=== PATIENT | female | born 1955 | race Caucasian/White ===

== ENCOUNTER 2019-05-02 07:22 | Outpatient (CLI) | payer MEDICARE, OTHER ==
[2019-05-02 07:43] LABS: BASOPHILS % (AUTO) 0.7 %; EOSINOPHILS # (AUTO) 0.1 10^3/uL (0.0-0.7); EOSINOPHILS % (AUTO) 2.2 %; HGB - HEMOGLOBIN 13.6 g/dL (12.0-16.0); LYMPHOCYTES # (AUTO) 1.2 10^3/uL (1.5-3.5); LYMPHOCYTES % (AUTO) 28.8 %; MEAN CORPUSCULAR HEMOGLOBIN 30.9 pg (27.0-31.0); MEAN CORPUSCULAR HGB CONC 32.7 g/dL (32.0-36.0); MEAN CORPUSCULAR VOLUME 94.5 fL (81.0-99.0); MEAN PLATELET VOLUME 9.6 fL (7.9-10.8); MONOCYTES # (AUTO) 0.6 10^3/uL (0.0-1.0); MONOCYTES % (AUTO) 13.9 %; NEUTROPHILS # (AUTO) 2.3 10^3/uL (1.5-6.6); NEUTROPHILS % (AUTO) 54.2 %; PLT - PLATELET COUNT 141 10^3/uL (130-450); RED CELL DISTRIBUTION WIDTH 12.4 % (12.0-15.0); WHITE BLOOD COUNT 4.2 x10^3/uL (4.8-10.8)
[2019-05-02 08:12] LABS: ALBUMIN 4.4 g/dL (3.2-5.5); ALBUMIN/GLOBULIN RATIO 1.8 (1.0-2.2); ALKALINE PHOSPHATASE 58 IU/L (42-121); ALT ALANINE AMINOTRANSFERASE 16 IU/L (10-60); AST ASPARTATE AMINOTRANSFERASE 20 IU/L (10-42); BILIRUBIN,TOTAL 0.6 mg/dL (0.2-1.0); BUN - BLOOD UREA NITROGEN 16 mg/dL (6-20); CALCIUM 9.3 mg/dL (8.5-10.3); CARBON DIOXIDE - CO2 26 mmol/L (21-32); CHLORIDE 105 mmol/L (101-111); CHOL/HDL RATIO 2.7 (<4.4); CHOLESTEROL 223 mg/dL; CREATININE 0.8 mg/dL (0.4-1.0); GFR - MDRD 72 (>89); GLUCOSE 98 mg/dL (70-100); HDL CHOLESTEROL 83 mg/dL; SODIUM 139 mmol/L (135-145); TOTAL PROTEIN 6.9 g/dL (6.7-8.2)
== END 2019-05-02 07:23 | disposition home or self-care (01) ==
LOC: LAB 07:22
PROVIDERS: ATTEND Nurse Practitioner
DX: Z00.00 Encounter for general adult medical examination without abnormal findings (principal); M85.89 Other specified disorders of bone density and structure, multiple sites; Z79.899 Other long term (current) drug therapy
CPT/HCPCS: 36415; 80053; 80061; 82306; 83721; 84443; 85025

== ENCOUNTER 2019-10-01 09:49 | Emergency (ER) | payer MEDICARE, OTHER ==
--- NOTE | 2019-10-01 10:59 | ED Physician Documentation ---
PD HPI LOWER EXT INJURY - Stated complaint Stated Complaint: RT FOOT PX - Chief complaint Chief Complaint: Ext Problem - History obtained from History obtained from: Patient - History of Present Illness PD HPI LOW EXT INJURY LOCATION: Left, Foot Type of injury: Blunt / blow Where injury occurred: Other (Friend's home) Timing - onset: How many days ago (5) Timing - duration: Days (5) Improved by: Rest Worsened by: Other (Ambulating) Associated symptoms: Swelling, Discolored. No: Weakness, Numbness, Tingling Recently seen: Not recently seen - Additional information Additional information: This is a 64-year-old woman who was visiting a friend and came out of her bathroom kicked something and a ceramic object fell off of the ledge and hit her right on the top of her left foot. She is able to walk on it but it increases the pain. It swelled and bruised pretty significantly she is been taking Aleve and Tylenol and then wrap use some Arnica gel on it this morning but with the continued pain she thought she should have it looked at. No numbness or tingling down into her toes and she has no history of fracture in the past. Review of Systems Musculoskeletal: reports: Extremity pain, Extremity swelling, Other Neurologic: denies: Numbness PD PAST MEDICAL HISTORY - Allergies Allergies/Adverse Reactions: Allergies Allergy/AdvReac Type Severity Reaction Status Date / Time No Known Drug Allergies Allergy Verified 10/01/19 09:52 PD ED PE NORMAL - Vitals Vital signs reviewed: Yes - General General: Alert and oriented X 3, No acute distress, Well developed/nourished - Extremities Extremities: Other (The top of the left foot is diffusely edematous and dark bruising. She has tenderness with palpation across the dorsum of the foot but palpation up in the sole of the foot along the metatarsals is completely nontender. She is a palpable dorsalis pedis pulse. She is able to wiggle her toes and sensation is intact light touch.) - Neuro Neuro: No motor deficit, No sensory deficit - Psych Psych: Normal mood, Normal affect Results - Vitals Vitals: Vital Signs - 24 hr 10/01/19 10/01/19 09:52 12:03 Temperature 36.5 C 36.7 C Heart Rate 60 62 Respiratory 14 14 Rate Blood Pressure 141/70 H 143/75 H O2 Saturation 99 99 Oxygen O2 Source Room air - Rads (name of study) L foot Radiology: EMP read contemporaneously (non-displaced fx of L 4th MT), See rad report Departure - Departure Disposition: 01 Home, Self Care Clinical Impression: Fracture of metatarsal bone of left foot Qualifiers: Encounter type: initial encounter Metatarsal bone: fourth Fracture type: closed Fracture alignment: nondisplaced Qualified Code(s): S92.345A - Nondisplaced fracture of fourth metatarsal bone, left foot, initial encounter for closed fr acture Condition: Good Instructions: ED Fx Foot Follow-Up: Arti Calvo ARNP, [facility] [Primary Care Provider] - Comments: Use the postop shoe for comfort. Keep the appointment with your primary care provider next week so that they can reevaluate and decide when to repeat imaging. Continue taking Tylenol or ibuprofen if needed for pain. Ice and elevate.
--- NOTE | 2019-10-01 11:39 | XRAY Report ---
Reason: pain Procedure Date: 10/01/2019 Accession Number: [id number] / [id number] Procedure: XR - Foot 3 View LT CPT Code: Final Report FULL RESULT: EXAM: LEFT FOOT RADIOGRAPHY EXAM DATE: 10/01/2019 11:12 AM. CLINICAL HISTORY: Left foot pain. COMPARISON: None. TECHNIQUE: 3 views. FINDINGS: Bones: There is a minimally displaced fracture of the neck of the 4th metatarsal. There are no other visible fractures. Joints: Normal. No subluxations. Soft Tissues: Moderate soft tissue swelling of the midfoot. IMPRESSION: Minimally displaced fracture of the neck of the 4th metatarsal. RADIA
[2019-10-01 12:04] VITALS: BP 143/75
== END 2019-10-01 13:00 | disposition home or self-care (01) ==
LOC: ED 09:49
DX: S92.345A Nondisplaced fracture of fourth metatarsal bone, left foot, initial encounter for closed fracture (principal); W20.8XXA Other cause of strike by thrown, projected or falling object, initial encounter; Y93.01 Activity, walking, marching and hiking; Y92.002 Bathroom of unspecified non-institutional (private) residence as the place of occurrence of the external cause
CPT/HCPCS: 99283

== ENCOUNTER 2019-10-27 07:32 | Outpatient (CLI) | payer MEDICARE, OTHER ==
--- NOTE | 2019-10-27 15:53 | XRAY Report ---
Reason: NONDISPLACED FRACTURE OF 4TH METATARSAL LT Procedure Date: 10/27/2019 Accession Number: [id number] / [id number] Procedure: XR - Foot 3 View LT CPT Code: Final Report FULL RESULT: EXAM: LEFT FOOT RADIOGRAPHY EXAM DATE: 10/27/2019 07:43 AM. CLINICAL HISTORY: Nondisplaced fracture of 4th metatarsal left. COMPARISON: FOOT 3 VIEW LT 10/01/2019 10:55 AM. TECHNIQUE: 3 views. FINDINGS: Bones: Callus formation associated with the distal fourth metatarsal shaft fracture. Fracture line still visible. Joints: Normal. No subluxations. Soft Tissues: Normal. No soft tissue swelling. IMPRESSION: 1. Callus formation associated with the fourth metatarsal fracture. Fracture line still visible. No significant change in alignment. RADIA
== END 2019-10-27 07:33 | disposition home or self-care (01) ==
LOC: DI 07:32
PROVIDERS: ATTEND Nurse Practitioner
DX: S92.345D Nondisplaced fracture of fourth metatarsal bone, left foot, subsequent encounter for fracture with routine healing (principal)

== ENCOUNTER 2020-03-09 07:44 | Outpatient (CLI) | payer MEDICARE, OTHER ==
--- NOTE | 2020-03-16 12:24 | Mammography Report ---
Reason: ROUTINE MAMMO Procedure Date: 03/09/2020 Accession Number: [id number] / [id number] Procedure: MGS - Screening Mammo Dig Bilat CPT Code: Final Report FULL RESULT: BILATERAL DIGITAL SCREENING MAMMOGRAM WITH EXAGGERATED CC: 03/09/2020 Comparison is made to exam dated: 11/01/2017 mammogram - [facility]. The tissue of both breasts is extremely dense, which lowers the sensitivity of mammography. No significant masses, calcifications, or other findings are seen in either breast. There has been no significant interval change. IMPRESSION: NEGATIVE There is no mammographic evidence of malignancy. A 1 year screening mammogram is recommended. This exam was interpreted at Station ID: [id number]. NOTE: For mammograms, a report in lay terms will be sent to the patient. Approximately 15% of breast malignancies will not be visualized mammographically. In the management of a palpable breast mass, a negative mammogram must not discourage biopsy of a clinically suspicious lesion. Electronically Signed By: Debbie au/nicky:03/16/2020 12:07:30 ACR BI-RADS Category 1: Negative 3341F D -Extremely dense 1 Mammogram [id number] 1 year screening B
== END 2020-03-09 07:45 | disposition home or self-care (01) ==
LOC: DI.S 07:44
PROVIDERS: ATTEND Nurse Practitioner
DX: Z12.31 Encounter for screening mammogram for malignant neoplasm of breast (principal)
CPT/HCPCS: 77067

== ENCOUNTER 2020-05-28 07:15 | Outpatient (CLI) | payer MEDICARE, OTHER ==
[2020-05-28 07:46] LABS: BASOPHILS % (AUTO) 0.5 %; EOSINOPHILS # (AUTO) 0.2 10^3/uL (0.0-0.7); EOSINOPHILS % (AUTO) 5.5 %; HGB - HEMOGLOBIN 13.8 g/dL (12.0-16.0); LYMPHOCYTES # (AUTO) 1.1 10^3/uL (1.5-3.5); MEAN CORPUSCULAR HEMOGLOBIN 32.1 pg (27.0-31.0); MEAN CORPUSCULAR HGB CONC 33.3 g/dL (32.0-36.0); MEAN CORPUSCULAR VOLUME 96.5 fL (81.0-99.0); MEAN PLATELET VOLUME 9.7 fL (7.9-10.8); MONOCYTES # (AUTO) 0.6 10^3/uL (0.0-1.0); MONOCYTES % (AUTO) 13.9 %; NEUTROPHILS # (AUTO) 2.4 10^3/uL (1.5-6.6); NEUTROPHILS % (AUTO) 53.9 %; PLT - PLATELET COUNT 161 10^3/uL (130-450); RED CELL DISTRIBUTION WIDTH 12.2 % (12.0-15.0); WHITE BLOOD COUNT 4.4 x10^3/uL (4.8-10.8)
[2020-05-28 07:58] LABS: ALBUMIN 4.5 g/dL (3.2-5.5); ALBUMIN/GLOBULIN RATIO 1.8 (1.0-2.2); BILIRUBIN,TOTAL 0.8 mg/dL (0.2-1.0); CALCIUM 9.7 mg/dL (8.5-10.3); CREATININE 0.8 mg/dL (0.4-1.0)
--- NOTE | 2020-05-28 09:20 | XRAY Report ---
PROCEDURE: Hip w/Pelvis 2-3V RT INDICATIONS: RIGHT HIP JOINT PAIN TECHNIQUE: AP pelvis with lateral view(s) of the right hip(s). COMPARISON: None. FINDINGS: Bones: No fractures or dislocations. Pelvic ring appears intact. No suspicious bony lesions. Soft tissues: The visualized bowel gas pattern is normal. No suspicious soft tissue calcifications. IMPRESSION: This is a normal study. Reviewed by: Chaparro Suazo MD on 05/28/2020 9:19 AM PDT Approved by: Chaparro Suazo MD on 05/28/2020 9:19 AM PDT Station ID: [id number]
== END 2020-05-28 07:16 | disposition home or self-care (01) ==
LOC: LAB 07:15
PROVIDERS: ATTEND Nurse Practitioner
DX: B00.9 Herpesviral infection, unspecified (principal); Z79.899 Other long term (current) drug therapy; M85.80 Other specified disorders of bone density and structure, unspecified site; M25.551 Pain in right hip
CPT/HCPCS: 36415; 80053; 82306; 85025

== ENCOUNTER 2020-08-16 10:20 | Day surgery (SDC) | payer MEDICARE, OTHER ==
[2020-08-16] MEDS ORDERED: LACTATED RINGERS 1,000 ML IV ONE (10:58)
[2020-08-16] MEDS ORDERED: fentaNYL 250 MCG/5 ML VIAL IVP ONE (12:04)
[2020-08-16] MEDS ORDERED: MIDAZOLAM 2 MG/2 ML VIAL IVP ONE (12:04)
[2020-08-16] MEDS ORDERED: LACTATED RINGERS 200 ML IV ONE (12:42)
[2020-08-16 13:21] VITALS: BP 113/62
== END 2020-08-16 10:21 | disposition home or self-care (01) ==
LOC: SDS 10:20
PROVIDERS: ATTEND Internal Medicine Gastroenterology
DX: Z12.11 Encounter for screening for malignant neoplasm of colon (principal); Z86.010 Personal history of colon polyps
CPT/HCPCS: G0105; J3010; J7120

== ENCOUNTER 2021-05-01 13:24 | Outpatient (CLI) | payer MEDICARE, OTHER ==
--- NOTE | 2021-05-03 16:09 | Mammography Report ---
BILATERAL DIGITAL SCREENING MAMMOGRAM 3D/2D WITH EXAGGERATED CC: 05/01/2021 CLINICAL: Family history of breast cancer. Comparison is made to exams dated: 03/09/2020 mammogram and 11/01/2017 mammogram - [facility]. The tissue of both breasts is extremely dense, which lowers the sensitivity of mammograph y. No significant masses, calcifications, or other findings are seen in either breast. There has been no significant interval change. IMPRESSION: NEGATIVE There is no mammographic evidence of malignancy. A 1 year screening mammogram is recommended. This exam was interpreted at Station ID: [id number]. NOTE: For mammograms, a report in lay terms will be sent to the patient. Approximately 15% of breast malignancies will not be visualized mammographically. In the management of a palpable breast mass, a negative mammogram must not discourage biopsy of a clinically suspicious lesion. Electronically Signed By: Ling angelo/penrad:05/02/2021 08:40:58 ACR BI-RADS Category 1: Negative 3341F PARENCHYMAL PATTERN: (VD) - The breast(s) demonstrate(s) extremely dense parenchyma, limiting the sen sitivity of mammography. BI-RADS CATEGORY: (1) - 1 RECOMMENDATION: (ANNUAL) - Recommend routine annual screening mammography. [id number] 1 year screening LATERALITY: (B)
== END 2021-05-01 13:25 | disposition home or self-care (01) ==
LOC: DI.S 13:24
DX: Z12.31 Encounter for screening mammogram for malignant neoplasm of breast (principal)

== ENCOUNTER 2022-04-05 12:54 | Outpatient (CLI) | payer MEDICARE ==
--- NOTE | 2022-04-05 16:31 | DEXA Report ---
PROCEDURE: Dexa Spine and/or Hip INDICATIONS: OSTEOPENIA TECHNIQUE: Dual energy x-ray absorptiometry (DXA) was performed on a [employer] System. Regions measur ed are the AP Spine, femoral neck, and if needed forearm. COMPARISON: 02/23/2020 FINDINGS: Lumbar Spine: Bone Mineral Density 0.853 g/cm/cm,T score -2.7, osteoporosis Left Hip: Bone Mineral Density 0.748 g/cm/cm,T score -2.1, osteopenia Left Femoral Neck: Bone Mineral Density 0.713 g/cm/cm, T score -2.3, osteopenia (T score greater or equal to -1.0: NORMAL) (T score from -1.1 to -2.4: OSTEOPENIA) (T score less than or equal to -2.5 to: OSTEOPOROSIS) Impression: Moderate osteopenia. Patient is at increased risk for fracture. Of note, patient's bone mineral densi ty of the lumbar spine has decreased approximately 7.9% since the prior study. Patients with diagnosis of osteoporosis or osteopenia should have regular bone mineral density assess ment. For those eligible for Medicare, routine testing is allowed once every 2 years. Testing frequ ency can be increased for patients who have rapidly progressing disease or for those who are receivin g medical therapy to restore bone mass. Reviewed by: Landon Bradford MD on 04/05/2022 4:30 PM PDT Approved by: Landon Bradford MD on 04/05/2022 4:30 PM PDT Station ID: [id number]
== END 2022-04-05 12:55 | disposition home or self-care (01) ==
LOC: DI 12:54
PROVIDERS: ATTEND Nurse Practitioner Family
DX: M81.0 Age-related osteoporosis without current pathological fracture (principal)

== ENCOUNTER 2022-05-22 14:49 | Outpatient (CLI) | payer MEDICARE ==
--- NOTE | 2022-05-24 12:51 | Mammography Report ---
BILATERAL DIGITAL SCREENING MAMMOGRAM 3D/2D WITH EXAGGERATED CC: 05/22/2022 CLINICAL: Routine screening. Family history of breast cancer. Comparison is made to exams dated: 05/01/2021 mammogram, 03/09/2020 mammogram, and 11/01/2017 mammogram - [facility]. Both breasts are extremely dense, which lowers the sensitivity of mammography (category d />75% glan dular tissue). No significant masses, calcifications, or other findings are seen in either breast. There has been no significant interval change. IMPRESSION: NEGATIVE There is no mammographic evidence of malignancy. A 1 year screening mammogram is recommended. Based on Tyrer-Cuzick model (a risk assessment model), the patient's lifetime risk is 25.1% and her 1 0 year risk is 14.6%. If a patient has an elevated risk, a more comprehensive evaluation should be co nsidered and/or a referral to a genetic counselor. The [place] [employer], [place] [employer], and NCCN Guidelines advise the consideration of Breast MRI as an adjunct to screening mammo graphy in patients whose "Lifetime risk to develop breast cancer" is 20% or higher. This exam was interpreted at Station ID: [id number]. NOTE: For mammograms, a report in lay terms will be sent to the patient. Approximately 15% of breast malignancies will not be visualized mammographically. In the management of a palpable breast mass, a negative mammogram must not discourage biopsy of a clinically suspicious lesion. Electronically Signed By: Landon reyes/nicky:05/24/2022 09:07:07 ACR BI-RADS Category 1: Negative 3341F PARENCHYMAL PATTERN: (VD) - The breast(s) demonstrate(s) extremely dense parenchyma, limiting the sen sitivity of mammography. BI-RADS CATEGORY: (1) - 1 RECOMMENDATION: (ANNUAL) - Recommend routine annual screening mammography. [id number] 1 year screening LATERALITY: (B)
== END 2022-05-22 14:50 | disposition home or self-care (01) ==
LOC: DI.S 14:49
PROVIDERS: ATTEND Nurse Practitioner Family
DX: Z12.31 Encounter for screening mammogram for malignant neoplasm of breast (principal); Z80.3 Family history of malignant neoplasm of breast

== ENCOUNTER 2023-09-26 10:52 | Outpatient (CLI) | payer MEDICARE ==
--- NOTE | 2023-09-27 11:49 | Mammography Report ---
BILATERAL DIGITAL SCREENING MAMMOGRAM 3D/2D: 09/26/2023 CLINICAL: Routine screening. Family history of breast cancer. Comparison is made to exams dated: 05/22/2022 mammogram, 05/01/2021 mammogram, and 03/09/2020 mammogram - [facility]. Both breasts are extremely dense, which lowers the sensitivity of mammography (category d />75% gland ular tissue). No significant masses, calcifications, or other findings are seen in either breast. There has been no significant interval change. IMPRESSION: NEGATIVE There is no mammographic evidence of malignancy. A 1 year screening mammogram is recommended. Based on Tyrer-Cuzick model (a risk assessment model), the patient's lifetime risk is 24.7% and her 1 0 year risk is 15.2%. If a patient has an elevated risk, a more comprehensive evaluation should be co nsidered and/or a referral to a genetic counselor. The [place] [employer], [place] [employer], and NCCN Guidelines advise the consideration of Breast MRI as an adjunct to screening mammo graphy in patients whose "Lifetime risk to develop breast cancer" is 20% or higher. This exam was interpreted at Station ID: [id number]. NOTE: For mammograms, a report in lay terms will be sent to the patient. Approximately 15% of breast malignancies will not be visualized mammographically. In the management of a palpable breast mass, a negative mammogram must not discourage biopsy of a clinically suspicious lesion. Electronically Signed By: Ling angelo/nicky:09/26/2023 16:45:03 letter sent: No_Letter ACR BI-RADS Category 1: Negative 3341F PARENCHYMAL PATTERN: (VD) - The breast(s) demonstrate(s) extremely dense parenchyma, limiting the sen sitivity of mammography. BI-RADS CATEGORY: (1) - 1 Mammogram [id number] 1 year screening LATERALITY: (B)
== END 2023-09-26 10:53 | disposition home or self-care (01) ==
LOC: DI.S 10:52
DX: Z12.31 Encounter for screening mammogram for malignant neoplasm of breast (principal); Z80.3 Family history of malignant neoplasm of breast; R92.343 Mammographic extreme density, bilateral breasts

== ENCOUNTER 2024-02-06 07:00 | Outpatient (CLI) | payer MEDICARE | END 2024-02-06 23:59 | disposition home or self-care (01) | LOC: LAB.S 07:00 | PROVIDERS: ATTEND Registered Nurse | DX: R30.0 Dysuria (principal) | CPT/HCPCS: 87086; 87181 ==